=== PATIENT | female | born 1990 | race Caucasian/White ===

== ENCOUNTER → 2016-08-23 | Outpatient (CLI) | payer OTHER ==
--- NOTE | 2016-08-23 12:16 | US ---
Ultrasound Pelvis Complete (Transabdominal and Endovaginal) Including Duplex/Doppler Imaging History: Z01.419, intermittent pelvic pain Technique: Transabdominal and endovaginal ultrasound images were obtained. Endovaginal images obtain ed for better evaluation of the uterine myometrium and adnexa. Duplex/Doppler imaging of adnexa. Findings: Uterus measures 9 x 5 x 4 cm. IUD appears in good position centrally within the endometria l canal. Endometrial thickness is 2 mm. No definite uterine leiomyomata. Right ovary measures 2.1 x 3.6 x 1.7 cm. Left ovary measures 2.3 x 1.8 x 1.5 cm. Normal follicles in both ovaries. No adnexal masses. Prominent bilateral adnexal vessels measuring up to 6 mm in diameter . Minimal free fluid in the pelvis. Color Doppler flow to both ovaries without torsion. Impression: 1. No ovarian torsion or masses. 2. IUD appears in good position. 3. Prominent bilateral pelvic veins which may represent pelvic congestion. 4. Minimal free fluid in the pelvis probably physiologic.
== END ==
LOC: FIMAGING 07:20
PROVIDERS: ATTEND Midwife
DX: R10.2 Pelvic and perineal pain (principal); Z97.5 Presence of (intrauterine) contraceptive device